=== PATIENT | male | born 1995 | race Caucasian/White ===

== ENCOUNTER 2017-02-25 02:05 | Emergency (ER) | payer OTHER ==
--- NOTE | 2017-02-25 02:42 | ED CLINICAL REPORT ---
Clinical Report - Physicians/Mid Levels [facility] [address] [place] [address] 02/25/2017 2:06 Patient: Rebecca FLYNN Time Seen: 02:19. Arrived- By private vehicle. Historian- patient. HISTORY OF PRESENT ILLNESS Chief Complaint: Injury to the left hand and left wrist. The injury happened about 48 hours ago. Fell while skateboarding and landed on a concrete surface. Occurred on a street. ( Patient reports that he was skateboarding yesterday when he lost control during a trick and fell off. He states he landed on his left side and hurt his wrist. He reports pain in his wrist and thumb). Patient is experiencing moderate pain. Patient denies injury to the head or neck. No other injury. REVIEW OF SYSTEMS The patient has had swelling. No tingling, numbness, weakness, foreign body or skin laceration. All systems otherwise negative, except as recorded above. PAST HISTORY See nurses notes. PCP: [facility] PROBLEMS: Abscess. Cellulitis. Fractured Metacarpal. Fracture.. SURGERIES: no known surgeries. The patient's dominant hand is the right. Tetanus immunization status is unknown. Surgeries: No history of previous surgery. SOCIAL HISTORY Smoker- current status unknown. Occasional alcohol use. History of IV drug use prior use, pt states none recently (noted on ED visit 5 years ago): heroin. Residence: [facility]. ADDITIONAL NOTES The nursing notes have been reviewed. PHYSICAL EXAM Vital Signs: 02/25/2017 02:15 BP: 150/86. HR: 98. RR: 20. O2 saturation: 99%. Temp: 98.8 F. Pain level now: 9/10. Appearance: Alert. Oriented X3. Patient in mild distress. Head: Head atraumatic. Eyes: Pupils equal, round and reactive to light. Eyes normal inspection. No scleral icterus or pale conjunctivae. ENT: Nose normal. Neck: Normal inspection. Neck supple. C-spine non-tender. CVS: Normal heart rate and rhythm. Heart sounds normal. Pulses normal. Respiratory: No respiratory distress. Breath sounds normal. Chest nontender. Abdomen: No visible injury. Soft and nontender. Back: No tenderness. Normal inspection. No vertebral point tenderness. Skin: Skin warm and dry. Skin intact. Extremities: Left wrist: moderate tenderness and mild swelling located in the area of the anatomic snuffbox, proximal hand and dorsal, volar and radial aspect of the wrist. Limited ROM secondary to pain. Neurovascular intact distally. No erythema, laceration, abrasion, ecchymosis or puncture wound. No foreign body or deformity. Right hand. No tenderness. Left hand: moderate tenderness and mild swelling localized to the proximal and dorsal aspect of the hand. No erythema, laceration, abrasion, ecchymosis or puncture wound. No foreign body or deformity. No signs of infection present. Extremities otherwise negative. Neuro, Vascular and Tendons: Vascular status intact. Sensation intact. Motor intact. Neuro: Oriented X 3. No motor deficit. No sensory deficit. LABS, X-RAYS, AND EKG Lt Wrist X-ray: Left wrist fracture. Carpal fracture involving the scaphoid. (nondisplaced). Views: AP, lateral and oblique. Technique: good. The X-rays were interpreted contemporaneously by me. Lt Hand X-ray: Left wrist fracture. Carpal fracture involving the scaphoid. Views: AP, lateral and oblique. Technique: good. The X-rays were interpreted contemporaneously by me. Pulse Oximetry: 02/25/2017 02:15 O2 saturation: 99%. (FIO2 - room air). Interpretation: normal. PROGRESS AND PROCEDURES Splint Application: Fiberglass short arm splint and thumb spica splint applied to right upper extremity. Splint applied by tech with direct supervision by the ED physician. Reassessed extremity following splint application. Neurovascular intact. Course of Care: Acetaminophen 1000 mg PO given. Ibuprofen 600 mg PO given. Zofran 4 mg ODT PO given. Patient is stable. Physical exam findings are improved. Symptoms better. Patient/family counseled. Old ED records reviewed. Disposition: Discharged. Condition: stable and improved. CLINICAL IMPRESSION Closed nondisplaced fracture of the distal one-third of the left navicular. Essential hypertension. Fall in sports (skateboarding). INSTRUCTIONS Apply ice. Elevate affected areas above chest level. Wear fiberglass splint until released. Limit use of your left hand until better. Warnings: CONTROLLED SUBSTANCE WARNINGS. GENERAL WARNINGS: Return or contact your physician immediately if your condition worsens or changes unexpectedly, if not improving as expected, or if other problems arise. Prescription Medications: Hydrocodone/APAP 5mg / 325mg: take 1-2 orally every 8 hours as needed for pain. Dispense five (5). No refill. Ibuprofen 600mg tablets: take 1 tablet orally every 8 hours as needed for pain. Dispense thirty (30). No refills. OTC Medications: Acetaminophen (available over the counter): take according to label instructions. Follow-up: Follow up with your doctor in about five days. Follow up with an orthopedic surgeon and a hand surgeon- as recommended by your primary care physician- in about two days. Screening today revealed the patient's blood pressure to be in the hypertensive range. The patient should follow up with a primary care provider for blood pressure management. Follow-up with: Minh Gary M.D., Ortho, , [address] [place] [address] Follow up in about two days. Call for the next available appointment. Follow-up with: [facility], , , [address], [place] [address] Follow up in about two days. (Electronically signed by Oscar Carpenter DO 02/25/2017 3:30)
--- NOTE | 2017-02-25 02:42 | ED NURSING NOTES ---
Clinical Report - Nurses [facility] [address] [place] [address] 02/25/2017 2:06 Patient: Rebecca FLYNN TRIAGE Triage time 02:11 Feb 25 2017. ( Patient called from Lobby, Patient needed time to obtain food and fluids from the vending machine). --02:12 Odalis Santiago Acuity: LEVEL 3. Chief Complaint: LEFT UPPER EXTREMITY PAIN and SWELLING. SEPSIS SCREEN: Sepsis Screen: negative. Negative (no infection suspected/documented). MARI COMA SCORE: [place] Coma Scale: 15- eyes open spontaneously (4); best verbal response- oriented x 4 (5); best motor response- obeys commands (6). --02:18 Odalis Santiago 02:15 02/25/17. BP: 150/86. HR: 98. RR: 20. O2 saturation: 99%. Temp: 98.8 F. Pain level now: 04/22. --02:18 Odalis Santiago. Weight: 58.9 kg stated. Height/Length: 65 inches Per Patient. BMI: 21.6. --02:17 Odalis Santiago. Medications None. --02:17 Odalis Santiago. Allergies No Known Drug Allergy. --02:17 Odalis Santiago. Medication/allergy information source: the patient. --02:18 Odalis Santiago. History Arrived by private vehicle. Historian: patient. Unaccompanied. Primary physician ([facility]). Injury occurred. This occurred yesterday. Occurred on a street. ( Patient reports that he was skateboarding yesterday when he lost control during a trick and fell off. He states he landed on his left side and hurt his wrist. He reports pain in his wrist and thumb). PAST MEDICAL HX: Tetanus status: unknown. Immunizations: status is unknown. SOCIAL HX: Heavy tobacco smoker- less than 1 pack per day. Occasional alcohol use. No drug use. No infectious disease exposure. ABUSE ASSESSMENT: No report of abuse. FALL RISK ASSESSMENT: Fall risk assessment completed. No fall risk identified. NUTRITIONAL RISK ASSESSMENT: The nutritional risk assessment revealed no deficiencies. FUNCTIONAL ASSESSMENT: Functional assessment: no impairments noted. LEARNING NEEDS ASSESSMENT: The learning needs assessment revealed no barriers. SKIN INTEGRITY ASSESSMENT: Skin integrity risk assessment completed. No skin integrity risk identified. --02:18 Odalis Santiago. PROBLEMS: Abscess. Fractured Metacarpal. Fracture. Immunizations. --02:18 Odalis Santiago. ADDITIONAL SURGERIES: no known surgeries. Interventions ID band on patient. To treatment room. --02:18 Odalis Santiago. PHYSICAL ASSESSMENT Ambulatory to room. GENERAL / NEURO / PSYCH: Oriented X 4. Alert. Appears in no acute distress. EXTREMITIES: Left wrist: tenderness and swelling. Limited ROM secondary to pain. SKIN: Skin intact. Skin is warm and dry. --02:19 Odalis Santiago. NURSING PROGRESS NOTES 02:19 02/25/17. Cold pack applied. Reassurance given to the patient. Two patient identifiers checked. Call light placed in reach. Side rails up x 1. Bed placed in lowest position. Brakes of bed on. Patient ready for evaluation- chart flagged and ED physician notified. --02:19 Odalis Santiago Patient walked to radiology with tech. (02:28 Feb 25 2017). Patient walked back to ED from radiology with tech. (02:33 Feb 25 2017). --02:33 Odalis Santiago 02:38 02/25/2017 Zofran ODT (Ondansetron) PO Oral Disintegrating Tablets 4 mg given. Allergies verified and confirmed 5 rights. --02:43 Odalis Santiago 02:43 02/25/2017 Ibuprofen PO Tablets 600 mg given. Allergies verified and confirmed 5 rights. --02:43 Odalis Santiago 02:43 02/25/2017 Acetaminophen (APAP) PO Tablets 1000 mg given. Allergies verified and confirmed 5 rights. --02:43 Odalis Santiago 03:00. Thumb spica fiberglass upper extremity splint applied to right wrist by tech. Distal pulses intact, sensation intact and motor within normal limits. --03:23 La Bojorquez. DISPOSITION / DISCHARGE 03:00 02/25/17. Condition at departure: improved and stable. The goals identified in the patient's plan of care were met. No learning barriers present. Discharge instructions provided and reviewed with the patient. Reviewed warnings (Do not drive while taking sedative medications). Reviewed splint care instructions. Reviewed referral to an orthopedic surgeon. Patient verbalized understanding. Written instructions provided in Samoan. ( Follow up with the orthopedic surgeon as recommended by your PCP. See your PCP in two days. Ice and elevate the affected extremity. Limited use until released by your doctor. Patient verbalized understanding and had no additional questions at this time.). The patient was discharged by the physician. He was discharged home and accompanied by production superintendent hydro. He left the Emergency Department ambulatory and via private vehicle. Res Counselor driving. FALL RISK ASSESSMENT: Fall risk assessment completed. No fall risk identified. --03:00 Odalis Santiago 02:57 02/25/17. BP: 136/77. HR: 90. RR: 20. O2 saturation: 96% on room air. Temp: deferred. Pain level now: 01/20. --03:00 Odalis Santiago. Locked/Released at 02/25/2017 6:47 by Hugh Herrera RDylan
--- NOTE | 2017-02-25 02:42 | ED NURSING NOTES ---
Clinical Report - Nurses [facility] [address] [place] [address] 02/25/2017 2:06 Patient: Rebecca FLYNN TRIAGE Triage time 02:11 Feb 25 2017. ( Patient called from Lobby, Patient needed time to obtain food and fluids from the vending machine). --02:12 Odalis Santiago Acuity: LEVEL 3. Chief Complaint: LEFT UPPER EXTREMITY PAIN and SWELLING. SEPSIS SCREEN: Sepsis Screen: negative. Negative (no infection suspected/documented). MARI COMA SCORE: [place] Coma Scale: 15- eyes open spontaneously (4); best verbal response- oriented x 4 (5); best motor response- obeys commands (6). --02:18 Odalis Santiago 02:15 02/25/17. BP: 150/86. HR: 98. RR: 20. O2 saturation: 99%. Temp: 98.8 F. Pain level now: 04/22. --02:18 Odalis Santiago. Weight: 58.9 kg stated. Height/Length: 65 inches Per Patient. BMI: 21.6. --02:17 Odalis Santiago. Medications None. --02:17 Odalis Santiago. Allergies No Known Drug Allergy. --02:17 Odalis Santiago. Medication/allergy information source: the patient. --02:18 Odalis Santiago. History Arrived by private vehicle. Historian: patient. Unaccompanied. Primary physician ([facility]). Injury occurred. This occurred yesterday. Occurred on a street. ( Patient reports that he was skateboarding yesterday when he lost control during a trick and fell off. He states he landed on his left side and hurt his wrist. He reports pain in his wrist and thumb). PAST MEDICAL HX: Tetanus status: unknown. Immunizations: status is unknown. SOCIAL HX: Heavy tobacco smoker- less than 1 pack per day. Occasional alcohol use. No drug use. No infectious disease exposure. ABUSE ASSESSMENT: No report of abuse. FALL RISK ASSESSMENT: Fall risk assessment completed. No fall risk identified. NUTRITIONAL RISK ASSESSMENT: The nutritional risk assessment revealed no deficiencies. FUNCTIONAL ASSESSMENT: Functional assessment: no impairments noted. LEARNING NEEDS ASSESSMENT: The learning needs assessment revealed no barriers. SKIN INTEGRITY ASSESSMENT: Skin integrity risk assessment completed. No skin integrity risk identified. --02:18 Odalis Santiago. PROBLEMS: Abscess. Fractured Metacarpal. Fracture. Immunizations. --02:18 Odalis Santiago. ADDITIONAL SURGERIES: no known surgeries. Interventions ID band on patient. To treatment room. --02:18 Odalis Santiago. PHYSICAL ASSESSMENT Ambulatory to room. GENERAL / NEURO / PSYCH: Oriented X 4. Alert. Appears in no acute distress. EXTREMITIES: Left wrist: tenderness and swelling. Limited ROM secondary to pain. SKIN: Skin intact. Skin is warm and dry. --02:19 Odalis Santiago. NURSING PROGRESS NOTES 02:19 02/25/17. Cold pack applied. Reassurance given to the patient. Two patient identifiers checked. Call light placed in reach. Side rails up x 1. Bed placed in lowest position. Brakes of bed on. Patient ready for evaluation- chart flagged and ED physician notified. --02:19 Odalis Santiago Patient walked to radiology with tech. (02:28 Feb 25 2017). Patient walked back to ED from radiology with tech. (02:33 Feb 25 2017). --02:33 Odalis Santiago 02:38 02/25/2017 Zofran ODT (Ondansetron) PO Oral Disintegrating Tablets 4 mg given. Allergies verified and confirmed 5 rights. --02:43 Odalis Santiago 02:43 02/25/2017 Ibuprofen PO Tablets 600 mg given. Allergies verified and confirmed 5 rights. --02:43 Odalis Santiago 02:43 02/25/2017 Acetaminophen (APAP) PO Tablets 1000 mg given. Allergies verified and confirmed 5 rights. --02:43 Odalis Santiago 03:00. Thumb spica fiberglass upper extremity splint applied to right wrist by tech. Distal pulses intact, sensation intact and motor within normal limits. --03:23 La Bojorquez. DISPOSITION / DISCHARGE 03:00 02/25/17. Condition at departure: improved and stable. The goals identified in the patient's plan of care were met. No learning barriers present. Discharge instructions provided and reviewed with the patient. Reviewed warnings (Do not drive while taking sedative medications). Reviewed splint care instructions. Reviewed referral to an orthopedic surgeon. Patient verbalized understanding. Written instructions provided in Togolese. ( Follow up with the orthopedic surgeon as recommended by your PCP. See your PCP in two days. Ice and elevate the affected extremity. Limited use until released by your doctor. Patient verbalized understanding and had no additional questions at this time.). The patient was discharged by the physician. He was discharged home and accompanied by it senior analyst. He left the Emergency Department ambulatory and via private vehicle. Leather Production Artisan driving. FALL RISK ASSESSMENT: Fall risk assessment completed. No fall risk identified. --03:00 Odalis Santiago 02:57 02/25/17. BP: 136/77. HR: 90. RR: 20. O2 saturation: 96% on room air. Temp: deferred. Pain level now: 01/20. --03:00 Odalis Santiago. Locked/Released at 02/25/2017 6:47 by Hugh Herrera RDylan
--- NOTE | 2017-02-25 02:42 | ED ORDER SUMMARY ---
..... Patient: Rebecca FLYNN OrderSheet [facility] VisitID: [id number] [address] [place] [address] 21y, M Registration Date/Time: 02/25/2017 ORDER SHEET Weight: 58.9 kg (stated) Allergies: No Known Drug Allergy GENERAL ORDERS: Hand 3 or 4V Left Urgent (02:24 02/25/2017 PHutchinson DO) (Ack 2:25 HSoule) (Ack 2:27 RKaruga) (2:33 RFay) Wrist 3 or 4V Left Urgent (02:24 02/25/2017 PHutchinson DO) (Ack 2:25 HSoule) (Ack 2:27 RKaruga) (2:33 RFay) Splint (UE) (Left) (Thumb Spica) (Short Arm) (02:36 02/25/2017 PHutchinson DO) (Ack 2:43 HSoule) (2:57 HSoule) MEDICATION ORDERS: Acetaminophen PO 1,000 mg (NOW) (02:37 02/25/2017 [facility] (2:43 HSoule) Ibuprofen PO 600 mg (NOW) (02:37 02/25/2017 [facility]) (2:43 HSoule) Zofran ODT PO 4 mg (NOW) (02:37 02/25/2017 [facility]) (2:43 HSoule) IV FLUIDS: ORDER SHEET NOTES: [Electronically signed by Oscar Carpenter DO (03:30 02/25/2017)] [Electronically signed by Hugh Herrera R.N. (06:46 02/25/2017)] [Electronically locked/signed by Hugh Herrera R.N. (06:46 02/25/2017)]
--- NOTE | 2017-02-25 02:42 | ED ORDER SUMMARY ---
..... Patient: Rebecca FLYNN OrderSheet [facility] VisitID: [id number] [address] [place] [address] 21y, M Registration Date/Time: 02/25/2017 ORDER SHEET Weight: 58.9 kg (stated) Allergies: No Known Drug Allergy GENERAL ORDERS: Hand 3 or 4V Left Urgent (02:24 02/25/2017 PHutchinson DO) (Ack 2:25 HSoule) (Ack 2:27 RKaruga) (2:33 RFay) Wrist 3 or 4V Left Urgent (02:24 02/25/2017 PHutchinson DO) (Ack 2:25 HSoule) (Ack 2:27 RKaruga) (2:33 RFay) Splint (UE) (Left) (Thumb Spica) (Short Arm) (02:36 02/25/2017 PHutchinson DO) (Ack 2:43 HSoule) (2:57 HSoule) MEDICATION ORDERS: Acetaminophen PO 1,000 mg (NOW) (02:37 02/25/2017 [facility]) (2:43 HSoule) Ibuprofen PO 600 mg (NOW) (02:37 02/25/2017 [facility]) (2:43 HSoule) Zofran ODT PO 4 mg (NOW) (02:37 02/25/2017 [facility]) (2:43 HSoule) IV FLUIDS: ORDER SHEET NOTES: [Electronically signed by Oscar Carpenter DO (03:30 02/25/2017)] [Electronically signed by Hugh Herrera R.N. (06:46 02/25/2017)] [Electronically locked/signed by Hugh Herrera R.N. (06:46 02/25/2017)]
--- NOTE | 2017-02-25 02:42 | ED CLINICAL REPORT ---
Clinical Report - Physicians/Mid Levels [facility] [address] [place] [address] 02/25/2017 2:06 Patient: Rebecca FLYNN Time Seen: 02:19. Arrived- By private vehicle. Historian- patient. HISTORY OF PRESENT ILLNESS Chief Complaint: Injury to the left hand and left wrist. The injury happened about 48 hours ago. Fell while skateboarding and landed on a concrete surface. Occurred on a street. ( Patient reports that he was skateboarding yesterday when he lost control during a trick and fell off. He states he landed on his left side and hurt his wrist. He reports pain in his wrist and thumb). Patient is experiencing moderate pain. Patient denies injury to the head or neck. No other injury. REVIEW OF SYSTEMS The patient has had swelling. No tingling, numbness, weakness, foreign body or skin laceration. All systems otherwise negative, except as recorded above. PAST HISTORY See nurses notes. PCP: [facility] PROBLEMS: Abscess. Cellulitis. Fractured Metacarpal. Fracture.. SURGERIES: no known surgeries. The patient's dominant hand is the right. Tetanus immunization status is unknown. Surgeries: No history of previous surgery. SOCIAL HISTORY Smoker- current status unknown. Occasional alcohol use. History of IV drug use prior use, pt states none recently (noted on ED visit 5 years ago): heroin. Residence: [facility]. ADDITIONAL NOTES The nursing notes have been reviewed. PHYSICAL EXAM Vital Signs: 02/25/2017 02:15 BP: 150/86. HR: 98. RR: 20. O2 saturation: 99%. Temp: 98.8 F. Pain level now: 9/10. Appearance: Alert. Oriented X3. Patient in mild distress. Head: Head atraumatic. Eyes: Pupils equal, round and reactive to light. Eyes normal inspection. No scleral icterus or pale conjunctivae. ENT: Nose normal. Neck: Normal inspection. Neck supple. C-spine non-tender. CVS: Normal heart rate and rhythm. Heart sounds normal. Pulses normal. Respiratory: No respiratory distress. Breath sounds normal. Chest nontender. Abdomen: No visible injury. Soft and nontender. Back: No tenderness. Normal inspection. No vertebral point tenderness. Skin: Skin warm and dry. Skin intact. Extremities: Left wrist: moderate tenderness and mild swelling located in the area of the anatomic snuffbox, proximal hand and dorsal, volar and radial aspect of the wrist. Limited ROM secondary to pain. Neurovascular intact distally. No erythema, laceration, abrasion, ecchymosis or puncture wound. No foreign body or deformity. Right hand. No tenderness. Left hand: moderate tenderness and mild swelling localized to the proximal and dorsal aspect of the hand. No erythema, laceration, abrasion, ecchymosis or puncture wound. No foreign body or deformity. No signs of infection present. Extremities otherwise negative. Neuro, Vascular and Tendons: Vascular status intact. Sensation intact. Motor intact. Neuro: Oriented X 3. No motor deficit. No sensory deficit. LABS, X-RAYS, AND EKG Lt Wrist X-ray: Left wrist fracture. Carpal fracture involving the scaphoid. (nondisplaced). Views: AP, lateral and oblique. Technique: good. The X-rays were interpreted contemporaneously by me. Lt Hand X-ray: Left wrist fracture. Carpal fracture involving the scaphoid. Views: AP, lateral and oblique. Technique: good. The X-rays were interpreted contemporaneously by me. Pulse Oximetry: 02/25/2017 02:15 O2 saturation: 99%. (FIO2 - room air). Interpretation: normal. PROGRESS AND PROCEDURES Splint Application: Fiberglass short arm splint and thumb spica splint applied to right upper extremity. Splint applied by tech with direct supervision by the ED physician. Reassessed extremity following splint application. Neurovascular intact. Course of Care: Acetaminophen 1000 mg PO given. Ibuprofen 600 mg PO given. Zofran 4 mg ODT PO given. Patient is stable. Physical exam findings are improved. Symptoms better. Patient/family counseled. Old ED records reviewed. Disposition: Discharged. Condition: stable and improved. CLINICAL IMPRESSION Closed nondisplaced fracture of the distal one-third of the left navicular. Essential hypertension. Fall in sports (skateboarding). INSTRUCTIONS Apply ice. Elevate affected areas above chest level. Wear fiberglass splint until released. Limit use of your left hand until better. Warnings: CONTROLLED SUBSTANCE WARNINGS. GENERAL WARNINGS: Return or contact your physician immediately if your condition worsens or changes unexpectedly, if not improving as expected, or if other problems arise. Prescription Medications: Hydrocodone/APAP 5mg / 325mg: take 1-2 orally every 8 hours as needed for pain. Dispense five (5). No refill. Ibuprofen 600mg tablets: take 1 tablet orally every 8 hours as needed for pain. Dispense thirty (30). No refills. OTC Medications: Acetaminophen (available over the counter): take according to label instructions. Follow-up: Follow up with your doctor in about five days. Follow up with an orthopedic surgeon and a hand surgeon- as recommended by your primary care physician- in about two days. Screening today revealed the patient's blood pressure to be in the hypertensive range. The patient should follow up with a primary care provider for blood pressure management. Follow-up with: Minh Gary M.D., Ortho, , [address] [place] [address] Follow up in about two days. Call for the next available appointment. Follow-up with: [facility], , , [address], [place] [address] Follow up in about two days. (Electronically signed by Oscar Carpenter DO 02/25/2017 3:30)
--- NOTE | 2017-02-25 06:47 | ED MAR SUMMARY ---
..... Medication Administration Record [facility] [address] [place] [address] Patient: Rebecca FLYNN Visit ID: [id number] 21y, M Weight: 58.9 kg Height/Length: 65 in BMI: 21.6 ALLERGIES: No Known Drug Allergy Given 02:02/25/2017 Odalis Santiago, Medication Administered: ZOFRAN ODT [PO] (ONDANSETRON), Dose: 4 mg Oral Disintegrating Tablets PO. Medication Ordered: Zofran ODT PO 4 mg (NOW). Given 02:02/25/2017 Odalis Santiago, Medication Administered: ACETAMINOPHEN [PO] (APAP), Dose: 1000 mg Tablets PO. Medication Ordered: Acetaminophen PO 1,000 mg (NOW). Given 02:02/25/2017 Odalis Santiago, Medication Administered: IBUPROFEN [PO], Dose: 600 mg Tablets PO. Medication Ordered: Ibuprofen PO 600 mg (NOW).
--- NOTE | 2017-02-25 06:47 | ED MAR SUMMARY ---
..... Medication Administration Record [facility] [address] [place] [address] Patient: Rebecca FLYNN Visit ID: [id number] 21y, M Weight: 58.9 kg Height/Length: 65 in BMI: 21.6 ALLERGIES: No Known Drug Allergy Given 02:02/25/2017 Odalis Santiago, Medication Administered: ZOFRAN ODT [PO] (ONDANSETRON), Dose: 4 mg Oral Disintegrating Tablets PO. Medication Ordered: Zofran ODT PO 4 mg (NOW). Given 02:02/25/2017 Odalis Santiago, Medication Administered: ACETAMINOPHEN [PO] (APAP), Dose: 1000 mg Tablets PO. Medication Ordered: Acetaminophen PO 1,000 mg (NOW). Given 02:02/25/2017 Odalis Santiago, Medication Administered: IBUPROFEN [PO], Dose: 600 mg Tablets PO. Medication Ordered: Ibuprofen PO 600 mg (NOW).
--- NOTE | 2017-02-25 06:47 | ED MED RECONCILIATION SUMMARY ---
Patient: Rebecca FLYNN Medication Reconciliation Report [facility] VisitID: [id number] [address] [place] [address] 21y, M Registration Date/Time: 02/25/2017 Weight: 58.9 kg Height/Length: 65 in. BMI: 21.6 ALLERGIES: No Known Drug Allergy The patient's Home Medications are listed below: NONE. The source(s) of the original Home Medication information: patient The following Medications were given to the patient in the Emergency Department: Zofran ODT [PO] PO 4 mg, administered: 02/25/2017 2:38:00 AM Ibuprofen [PO] PO 600 mg, administered: 02/25/2017 2:43:00 AM Acetaminophen [PO] PO 1000 mg, administered: 02/25/2017 2:43:00 AM The following Medications were prescribed to the patient: Acetaminophen (available over the counter): take according to label instructions. -- Oscar Carpenter DO Hydrocodone/APAP 5mg / 325mg: take 1-2 orally every 8 hours as needed for pain. Dispense five (5). No refill. -- Oscar Carpenter DO Ibuprofen 600mg tablets: take 1 tablet orally every 8 hours as needed for pain. Dispense thirty (30). No refills. -- Oscar Carpenter DO
--- NOTE | 2017-02-25 06:47 | ED DISCHARGE INSTRUCTIONS ---
Patient: Rebecca FLYNN General Instructions [facility] VisitID: [id number] [address] [place] [address] 21y, M Registration Date/Time: 02/25/2017 Closed nondisplaced fracture of the distal one-third of the left navicular. Essential hypertension. Fall in sports (skateboarding). INSTRUCTIONS Apply ice. Elevate affected areas above chest level. Wear fiberglass splint until released. Limit use of your left hand until better. Warnings: CONTROLLED SUBSTANCE WARNINGS. GENERAL WARNINGS: Return or contact your physician immediately if your condition worsens or changes unexpectedly, if not improving as expected, or if other problems arise. Prescription Medications: Hydrocodone/APAP 5mg / 325mg: take 1-2 orally every 8 hours as needed for pain. Dispense five (5). No refill. Ibuprofen 600mg tablets: take 1 tablet orally every 8 hours as needed for pain. Dispense thirty (30). No refills. OTC Medications: Acetaminophen (available over the counter): take according to label instructions. Follow-up: Follow up with your doctor in about five days. Follow up with an orthopedic surgeon and a hand surgeon- as recommended by your primary care physician- in about two days. Screening today revealed the patient's blood pressure to be in the hypertensive range. The patient should follow up with a primary care provider for blood pressure management. Follow-up with: Minh Gary M.D., Ortho, , [address], [place] [address] Follow up in about two days. Call for the next available appointment. Follow-up with: [facility], , , [address], [place] [address] Follow up in about two days. ADDITIONAL INFORMATION Mechanical Fall You have had a fall today. It appears that the cause is mechanical. That means that you slipped, tripped or lost your balance. If your fall had been due to fainting or a seizure, further tests would be required. Home Care: Rest today and resume your normal activities when you are feeling back to normal. If you were injured during the fall, follow the advice from your doctor regarding care of your injury. You may use acetaminophen (Tylenol) or ibuprofen (Motrin, Advil) to control pain, unless another pain medicine was prescribed. [NOTE: If you have chronic liver or kidney disease or ever had a stomach ulcer or GI bleeding, talk with your doctor before using these medicines.] Fall Prevention: Was there anything that caused your fall that can be fixed, removed, or replaced? Make your home safe by keeping walkways clear of objects you may trip over. Use non-slip pads under rugs. Do not walk in poorly lit areas. Do not stand on chairs or wobbly ladders. Use caution when reaching overhead or looking upward. This position can cause a loss of balance. Be sure your shoes fit properly, have non-slip bottoms and are in good condition. Be cautious when going up and down curbs, and walking on uneven sidewalks. If your balance is poor, consider using a cane or walker. Stay as active as you can. Balance, flexibility, strength, and endurance all come from exercise. They all play a role in preventing falls. Follow Up with your doctor or as advised by our staff. Get Prompt Medical Attention if any of the following occur: Repeated mechanical falls, or unexplained falls Dizziness, fainting or seizure Severe headache Chest pain or shortness of breath Palpitations (very rapid or very slow or irregular heartbeat) Blood in vomit, stools (black or red color) Weakness of an arm or leg or one side of the face Difficulty with speech or vision Navicular Fracture (Wrist) [Certain] You have a fracture (break) of one of the small bones of your wrist. This bone heals slowly and you may need to be in a cast for up to three months. Some navicular fractures do not heal properly and require surgery at a later time. HOME CARE: 1) Keep your arm elevated to reduce pain and swelling. When sitting or lying down elevate your arm above the level of your heart. You can do this by placing your arm on a pillow that rests on your chest or on a pillow at your side. This is most important during the first 48 hours after injury. 2) Apply an ice pack (ice cubes in a plastic bag, wrapped in a towel) over the injured area for 20 minutes every 1-2 hours the first day. You can place the ice pack inside the sling and directly over the splint/cast. Continue with ice packs 3-4 times a day for the next two days, then as needed for the relief of pain and swelling. 3) Keep the cast/splint completely dry at all times. Bathe with your cast/splint out of the water, protected with a large plastic bag, rubber-banded at the top end. If a fiberglass cast/splint gets wet, you can dry it with a hair-dryer. 4) You may use acetaminophen (Tylenol) or ibuprofen (Motrin, Advil) to control pain, unless another pain medicine was prescribed. [ NOTE : If you have chronic liver or kidney disease or ever had a stomach ulcer or GI bleeding, talk with your doctor before using these medicines.] 5) If you smoke, try to quit. Tobacco use can interfere with the healing of this fracture and increase risk of a complication needing surgery. Follow Up with your doctor in one week, or as advised by our staff, to be sure the bone is healing properly. If a splint was applied, it will be changed to a cast during your follow-up visit. When you come out of the cast, you will need to have special hand and wrist exercises to recover your strength and range of motion. Some people develop permanent stiffness in the wrist after this type of injury. [NOTE: X-rays will be reviewed by a radiologist. You will be notified of any new findings that may affect your care.] Get Prompt Medical Attention if any of the following occur: -- The plaster cast or splint becomes wet or soft -- The fiberglass cast or splint remains wet for more than 24 hours -- Increased tightness or pain under the cast or splint -- Fingers become swollen, cold, blue, numb or tingly High Blood Pressure -- To Be Confirmed [No Tx] Your blood pressure was higher today than normal. Sometimes anxiety or pain can cause a temporary rise in blood pressure that later returns to normal. If your blood pressure is high on one measurement, this does not mean that you have hypertension (a chronic illness). However, you must have your blood pressure measured again within the next few days to find out if its still high. A normal blood pressure is 120/80 or less. The first (top) number is the "systolic" pressure. The second (bottom) number is the "diastolic" pressure. Hypertension exists when either the top number is 140 or higher, OR the bottom number is 90 or higher on repeated measurements. Blood pressure in the range of 120-140 (systolic) or 80-89 (diastolic) is considered "pre-hypertension". This means your are at risk for getting hypertension. You should have regular blood pressure checks to be sure your blood pressure is not rising. Home Care: Measure your blood pressure on 3 different days and write down the results. This can be done at your doctor's office or this facility. Some pharmacies and grocery stores offer automated blood pressure machines for your use. Follow Up: If your blood pressure is "high" (over 120/80) on 2 out of 3 days, you will need to follow up with your doctor for further evaluation and treatment. DO NOT PUT THIS OFF! Untreated high blood pressure increases the risk for heart attack, also known as acute myocardial infarction, or AMI, and stroke. It is a treatable condition. Get Prompt Medical Attention if any of the following occur: Chest pain or shortness of breath Severe headache Throbbing or rushing sound in the ears Nosebleed Sudden severe abdominal pain Extreme drowsiness, confusion or fainting Dizziness or vertigo (dizziness with spinning sensation) Weakness of an arm or leg or one side of the face Difficulty with speech or vision Splint Care, Fiberglass The following will help you care for your splint: It will take up totwo hours for your fiber glass splint to fully harden; therefore, do notapply any pressure on it during that time or else it may break. To prevent swelling under the splint, for thefirst 48 hours: If the splint is on yourarm, keep it in a sling or raised to shoulder level when sitting or standing; rest it on your chest or on a pillow at your side when lying down. If the splint is on yourfoot, keep it propped up above the level of your waist when sitting or lying. Avoid crutch walking as much as possible during this time. Keep the splint/cast dry at all times. Bathe with your splint/cast well out of the water, protected with a large plastic bag, rubber-banded at the top end. If a fiberglass cast or splint gets wet, you can dry it with a hair-dryer. Follow-up care Follow up with your doctor or this facility as advised. When to seek medical care Get prompt medical attention if any of the following occur: Bad odor from the splint or wound-fluid stains the splint The splint cracks or remains wet over 24 hours Increasing tightness or pressure under the splint Fingers or toes become swollen, cold, blue, numb or tingly Increased pain under the splint Hydrocodone Bitartrate, Acetaminophen Oral tablet What is this medicine? ACETAMINOPHEN; HYDROCODONE (a set a JESI elana fen; veto droe KOE done) is a pain reliever. It is used to treat mild to moderate pain. How should I use this medicine? Take this medicine by mouth. Swallow it with a full glass of water. Follow the directions on the prescription label. If the medicine upsets your stomach, take the medicine with food or milk. Do not take more than you are told to take. Talk to your metal lather regarding the use of this medicine in children. This medicine is not approved for use in children. What side effects may I notice from receiving this medicine? Side effects that you should report to your doctor or health childbirth and infant care teacher as soon as possible: allergic reactions like skin rash, itching or hives, swelling of the face, lips, or tongue breathing problems confusion feeling faint or lightheaded, falls stomach pain yellowing of the eyes or skin Side effects that usually do not require medical attention (report to your doctor or health childbirth and infant care teacher if they continue or are bothersome): nausea, vomiting stomach upset What may interact with this medicine? alcohol antihistamines isoniazid medicines for depression, anxiety, or psychotic disturbances medicines for sleep muscle relaxants naltrexone narcotic medicines (opiates) for pain phenobarbital ritonavir tramadol What if I miss a dose? If you miss a dose, take it as soon as you can. If it is almost time for your next dose, take only that dose. Do not take double or extra doses. Where should I keep my medicine? Keep out of the reach of children. This medicine can be abused. Keep your medicine in a safe place to protect it from theft. Do not share this medicine with anyone. Selling or giving away this medicine is dangerous and against the law. Store at room temperature between 15 and 30 degrees C (59 and 86 degrees F). Protect from light. Keep container tightly closed. Throw away any unused medicine after the expiration date. Discard unused medicine and used packaging carefully. Pets and children can be harmed if they find used or lost packages. What should I tell my health care provider before I take this medicine? They need to know if you have any of these conditions: brain tumor Crohn's disease, inflammatory bowel disease, or ulcerative colitis drink more than 3 alcohol-containing drinks per day drug abuse or addiction head injury heart or circulation problems kidney disease or problems going to the bathroom liver disease lung disease, asthma, or breathing problems an unusual or allergic reaction to acetaminophen, hydrocodone, other opioid analgesics, other medicines, foods, dyes, or preservatives or trying to get breast-feeding What should I watch for while using this medicine? Tell your doctor or health childbirth and infant care teacher if your pain does not go away, if it gets worse, or if you have new or a different type of pain. You may develop tolerance to the medicine. Tolerance means that you will need a higher dose of the medicine for pain relief. Tolerance is normal and is expected if you take the medicine for a long time. Do not suddenly stop taking your medicine because you may develop a severe reaction. Your body becomes used to the medicine. This does NOT mean you are addicted. Addiction is a behavior related to getting and using a drug for a non-medical reason. If you have pain, you have a medical reason to take pain medicine. Your doctor will tell you how much medicine to take. If your doctor wants you to stop the medicine, the dose will be slowly lowered over time to avoid any side effects. You may get drowsy or dizzy when you first start taking the medicine or change doses. Do not drive, use machinery, or do anything that may be dangerous until you know how the medicine affects you. Stand or sit up slowly. There are different types of narcotic medicines (opiates) for pain. If you take more than one type at the same time, you may have more side effects. Give your health care provider a list of all medicines you use. Your doctor will tell you how much medicine to take. Do not take more medicine than directed. Call emergency for help if you have problems breathing. The medicine will cause constipation. Try to have a bowel movement at least every 2 to 3 days. If you do not have a bowel movement for 3 days, call your doctor or health childbirth and infant care teacher. Too much acetaminophen can be very dangerous. Do not take Tylenol (acetaminophen) or medicines that contain acetaminophen with this medicine. Many non-prescription medicines contain acetaminophen. Always read the labels carefully. Ibuprofen Oral tablet What is this medicine? IBUPROFEN (eye BYOO proe fen) is a non-steroidal anti-inflammatory drug (NSAID). It is used for dental pain, fever, headaches or migraines, osteoarthritis, rheumatoid arthritis, or painful monthly periods. It can also relieve minor aches and pains caused by a cold, flu, or sore throat. How should I use this medicine? Take this medicine by mouth with a glass of water. Follow the directions on the prescription label. Take this medicine with food if your stomach gets upset. Try to not lie down for at least 10 minutes after you take the medicine. Take your medicine at regular intervals. Do not take your medicine more often than directed. A special MedGuide will be given to you by the pharmacist with each prescription and refill. Be sure to read this information carefully each time. Talk to your metal lather regarding the use of this medicine in children. Special care may be needed. What side effects may I notice from receiving this medicine? Side effects that you should report to your doctor or health childbirth and infant care teacher as soon as possible: allergic reactions like skin rash, itching or hives, swelling of the face, lips, or tongue black or bloody stools, blood in the urine or in vomit breathing problems changes in vision chest pain general ill feeling or flu-like symptoms nausea or vomiting redness, blistering, peeling or loosening of the skin, including inside the mouth slurred speech or weakness on one side of the body stomach pain unexplained weight gain or swelling unusually weak or tired yellowing of eyes or skin Side effects that usually do not require medical attention (report to your doctor or health childbirth and infant care teacher if they continue or are bothersome): constipation or diarrhea dizziness gas or heartburn stomach upset What may interact with this medicine? Do not take this medicine with any of the following medications: cidofovir ketorolac methotrexate pemetrexed This medicine may also interact with the following medications: alcohol aspirin diuretics lithium other drugs for inflammation like prednisone warfarin What if I miss a dose? If you miss a dose, take it as soon as you can. If it is almost time for your next dose, take only that dose. Do not take double or extra doses. Where should I keep my medicine? Keep out of the reach of children. Store at room temperature between 15 and 30 degrees C (59 and 86 degrees F). Keep container tightly closed. Throw away any unused medicine after the expiration date. What should I tell my health care provider before I take this medicine? They need to know if you have any of these conditions: asthma cigarette smoker drink more than 3 alcohol containing drinks a day heart disease or circulation problems such as heart failure or leg edema (fluid retention) high blood pressure kidney disease liver disease stomach bleeding or ulcers an unusual or allergic reaction to ibuprofen, aspirin, other NSAIDS, other medicines, foods, dyes, or preservatives or trying to get breast-feeding What should I watch for while using this medicine? Tell your doctor or healthcare professional if your symptoms do not start to get better or if they get worse. This medicine does not prevent heart attack or stroke. In fact, this medicine may increase the chance of a heart attack or stroke. The chance may increase with longer use of this medicine and in people who have heart disease. If you take aspirin to prevent heart attack or stroke, talk with your doctor or health childbirth and infant care teacher. Do not take other medicines that contain aspirin, ibuprofen, or naproxen with this medicine. Side effects such as stomach upset, nausea, or ulcers may be more likely to occur. Many medicines available without a prescription should not be taken with this medicine. This medicine can cause ulcers and bleeding in the stomach and intestines at any time during treatment. Ulcers and bleeding can happen without warning symptoms and can cause . To reduce your risk, do not smoke cigarettes or drink alcohol while you are taking this medicine. You may get drowsy or dizzy. Do not drive, use machinery, or do anything that needs mental alertness until you know how this medicine affects you. Do not stand or sit up quickly, especially if you are an older patient. This reduces the risk of dizzy or fainting spells. This medicine can cause you to bleed more easily. Try to avoid damage to your teeth and gums when you brush or floss your teeth. Acetaminophen Oral tablet What is this medicine? ACETAMINOPHEN (a set a JESI elana fen) is a pain reliever. It is used to treat mild pain and fever. How should I use this medicine? Take this medicine by mouth with a glass of water. Follow the directions on the package or prescription label. Take your medicine at regular intervals. Do not take your medicine more often than directed. Talk to your metal lather regarding the use of this medicine in children. While this drug may be prescribed for children as young as 6 years of age for selected conditions, precautions do apply. What side effects may I notice from receiving this medicine? Side effects that you should report to your doctor or health childbirth and infant care teacher as soon as possible: allergic reactions like skin rash, itching or hives, swelling of the face, lips, or tongue breathing problems fever or sore throat redness, blistering, peeling or loosening of the skin, including inside the mouth trouble passing urine or change in the amount of urine unusual bleeding or bruising unusually weak or tired yellowing of the eyes or skin Side effects that usually do not require medical attention (report to your doctor or health childbirth and infant care teacher if they continue or are bothersome): headache nausea, stomach upset What may interact with this medicine? alcohol imatinib isoniazid other medicines with acetaminophen What if I miss a dose? If you miss a dose, take it as soon as you can. If it is almost time for your next dose, take only that dose. Do not take double or extra doses. Where should I keep my medicine? Keep out of reach of children. Store at room temperature between 20 and 25 degrees C (68 and 77 degrees F). Protect from moisture and heat. Throw away any unused medicine after the expiration date. What should I tell my health care provider before I take this medicine? They need to know if you have any of these conditions: if you frequently drink alcohol containing drinks liver disease an unusual or allergic reaction to acetaminophen, other medicines, foods, dyes or preservatives or trying to get breast-feeding What should I watch for while using this medicine? Tell your doctor or health childbirth and infant care teacher if the pain lasts more than 10 days (5 days for children), if it gets worse, or if there is a new or different kind of pain. Also, check with your doctor if a fever lasts for more than 3 days. Do not take other medicines that contain acetaminophen with this medicine. Always read labels carefully. If you have questions, ask your doctor or pharmacist. If you take too much acetaminophen get medical help right away. Too much acetaminophen can be very dangerous and cause liver damage. Even if you do not have symptoms, it is important to get help right away. You have been given the following additional information: Fall, Mechanical Navicular Fracture, Wrist (Confirmed) Hypertension, To Be Confirmed Splint Care, Fiberglass Hydrocodone Bitartrate, Acetaminophen Oral tablet Ibuprofen Oral tablet Acetaminophen Oral tablet Limit use of your left hand until better. (Electronically signed by Oscar Carpenter DO 02/25/2017 3:30)
--- NOTE | 2017-02-25 06:47 | ED MED RECONCILIATION SUMMARY ---
Patient: Rebecca FLYNN Medication Reconciliation Report [facility] VisitID: [id number] [address] [place] [address] 21y, M Registration Date/Time: 02/25/2017 Weight: 58.9 kg Height/Length: 65 in. BMI: 21.6 ALLERGIES: No Known Drug Allergy The patient's Home Medications are listed below: NONE. The source(s) of the original Home Medication information: patient The following Medications were given to the patient in the Emergency Department: Zofran ODT [PO] PO 4 mg, administered: 02/25/2017 2:38:00 AM Ibuprofen [PO] PO 600 mg, administered: 02/25/2017 2:43:00 AM Acetaminophen [PO] PO 1000 mg, administered: 02/25/2017 2:43:00 AM The following Medications were prescribed to the patient: Acetaminophen (available over the counter): take according to label instructions. -- Oscar Carpenter DO Hydrocodone/APAP 5mg / 325mg: take 1-2 orally every 8 hours as needed for pain. Dispense five (5). No refill. -- Oscar Carpenter DO Ibuprofen 600mg tablets: take 1 tablet orally every 8 hours as needed for pain. Dispense thirty (30). No refills. -- Oscar Carpenter DO
--- NOTE | 2017-02-25 09:18 | DIAGNOSTIC IMAGING REPORT ---
PROCEDURE: XR HAND 3 OR 4 VIEWS - LEFT INDICATION: TRAUMA/INJURY TECHNIQUE: Four views of the left hand. COMPARISON: None. FINDINGS: Normal mineralization. Vertically oriented lucency through the lateral distal aspect of the scaphoid normal bony alignment. Mild soft tissue swelling. No radiodense foreign bodies or unusual calcifications. IMPRESSION: 1. Nondisplaced distal scaphoid fracture.
--- NOTE | 2017-02-25 09:19 | DIAGNOSTIC IMAGING REPORT ---
PROCEDURE: XR WRIST MIN 3 VIEWS - LEFT INDICATION: TRAUMA/INJURY TECHNIQUE: Three views of the left wrist. COMPARISON: None. FINDINGS: Normal mineralization. Nondisplaced vertically oriented lucency through the lateral distal corner of the scaphoid. No other fractures visible. Normal bony alignment. Scapholunate distance is normal. Mild soft tissue swelling. No radiodense foreign bodies or calcifications. IMPRESSION: 1. Nondisplaced distal scaphoid fracture.
== END 2017-02-25 03:05 | disposition home or self-care (01) ==
LOC: ED SRH 02:05
DX: S62.015A Nondisplaced fracture of distal pole of navicular [scaphoid] bone of left wrist, initial encounter for closed fracture (principal); V00.131A Fall from skateboard, initial encounter; Y93.51 Activity, roller skating (inline) and skateboarding; Y99.8 Other external cause status; Y92.410 Unspecified street and highway as the place of occurrence of the external cause; I10 Essential (primary) hypertension